=== PATIENT | male | born 1955 | race Caucasian/White ===

== ENCOUNTER 2025-07-08 10:56 | Outpatient (REF) | payer MEDICARE, SELFPAY ==
[2025-07-08 14:47] LABS: Hematocrit 45.4 % (42.0-52.0); Hemoglobin 15.1 g/dl (14.0-18.0); Mean Corpuscular HGB Conc 33.3 g/dl (31.0-36.0); Mean Corpuscular Hemoglobin 30.6 pg (27.0-33.0); Mean Corpuscular Volume 92.1 fL (80.0-98.0); NRBC Abs Auto 0.000 X10*3/uL (0.0-0.012); NRBC Pct Auto 0.0 /100WBC (0.0-0.2); Platelet Count 209 X10*3/uL (160-400); Red Blood Count 4.93 X10*6/uL (4.60-5.80); White Blood Count 4.3 X10*3/uL (4.8-10.8)
[2025-07-08 14:59] LABS: Alanine Aminotransferase 23 U/L (0-40); Albumin Level 4.5 g/dL (3.5-5.0); Alkaline Phosphatase 51 U/L (39-117); Anion Gap 9 (12-20); Aspartate Amino Transferase 33 U/L (5-37); Blood Urea Nitrogen 17 mg/dL (9-16); Calcium 9.1 mg/dL (8.4-10.2); Carbon Dioxide 28 mmol/L (22-29); Chloride 106 mmol/L (96-108); Cholesterol 125 mg/dL (<200); Estimated Glomerular Filt Rate > 60; HDL Cholesterol 50 mg/dL (>40); Iron 100 mcg/dL (45-160); Percent Iron Saturation 28 % (15-50); Potassium 4.1 mmol/L (3.3-5.1); Sodium 139 mmol/L (135-145); Total Iron Binding Capacity 353 mcg/dL (228-428); Total Protein 7.4 g/dL (6.5-8.0); Triglycerides 58 mg/dL (<150); Unsaturated Iron Binding 253 ug/dL
[2025-07-08 15:20] LABS: Ferritin 41 ng/mL (20-250)
[2025-07-08 15:21] LABS: Folate 12.6 ng/mL (> or = 4.0); Vitamin B12 458 pg/mL (200-900)
[2025-07-09 05:49] LABS: Lyme Abs Screen <0.90 index
[2025-07-15 14:43] LABS: Anti Nuclear Antibody Screen NEGATIVE (NEGATIVE)
== END 2025-07-08 10:57 | disposition home or self-care (01) ==
LOC: HO.WFDLDS 10:56
PROVIDERS: PCP Nurse Practitioner Family; Visit Provider Nurse Practitioner Family
DX: I10 Essential (primary) hypertension (principal); N40.1 Benign prostatic hyperplasia with lower urinary tract symptoms; N13.8 Other obstructive and reflux uropathy; F41.9 Anxiety disorder, unspecified; F95.9 Tic disorder, unspecified; R63.5 Abnormal weight gain; I25.10 Atherosclerotic heart disease of native coronary artery without angina pectoris; B35.1 Tinea unguium; F33.0 Major depressive disorder, recurrent, mild; F41.1 Generalized anxiety disorder; R73.03 Prediabetes; E03.8 Other specified hypothyroidism; I95.1 Orthostatic hypotension; B36.9 Superficial mycosis, unspecified; Z12.5 Encounter for screening for malignant neoplasm of prostate; Z76.89 Persons encountering health services in other specified circumstances
CPT/HCPCS: 36415; 80053; 80061; 82306; 82570; 82607; 82728; 82746; 83036; 83540; 84153; 84443; 85027; 86038; 86376; 86431; 86617; 86618; 96127; 99202

== ENCOUNTER 2025-07-08 10:56 | Outpatient (AMB) | payer MEDICARE, SELFPAY ==
--- NOTE | 2025-07-08 10:58 | MHC.PC.OV ---
Vital Signs 07/08/25 11:14 Height 5 ft 8 in Weight 190 lb 4 oz BMI 28.9 BP 115/71 Blood Pressure Location Rt brachial Position Sitting Respiration 16 Pulse 61 Pulse Source Pulse Oximeter Temp 97.9 F Temp Source Oral Pulse Oximetry (%) 98 Oxygen Delivery Method Room Air Intake Visit Reasons: est care Intake Note: patient here for new patient visit Non Destructive Evaluation Manager Required: No Allergies beta faheem Adverse Reaction (Intermediate, Uncoded 07/08/25 11:29) Fatigued Medication List - Last Reviewed 07/08/25 by TYRON Alcaraz aspirin (Adult Low Dose Aspirin) 81 mg PO DAILY escitalopram oxalate (Lexapro) 50 mg PO DAILY ezetimibe (Zetia) 10 mg PO DAILY losartan 12.5 mg PO DAILY nitroglycerin mg sublingual rosuvastatin 5 mg PO Q OTHER DAY Tobacco use date assessed: 07/08/25 Fall risk assessment: No Falls in past year Last assessed Fall Risk: 07/08/25 Dental Screening Dental Screen Date: 07/08/25 Did you have a dental visit in the last 12 months?: Yes Did you have a dental problem in the last 6 months where you did not have access to dental care?: No Was dental information given to patient?: Patient has dentist HPI HPI Comments History of Present Illness Details Yaw 70 y/o M with HSV, MDD, HLD, HTN, GERD, prediabetes, CAD s/p PA, BPH with LUTS, CAROLANN, Peripheral nueropathy, subclinical hypothyroid, thyroid nodule, neoplasm of urinary, tinnitus, Hx of L nereida tendon rupture. SurgHx: lap toupet fundoplication 2018, cardiac stents 2013 FHx: Mom ovarian ca; Dad CAD; PGM stroke SocHx: , Dtr; Retired Health Maintenance: See scanned preventative medicine assessment with personalized health plan and screening schedule. Colon: due 2024 Vaccines: tdap 2021, otherwise UTD FLu 06/2025 @ [facility] screen EKG: [place] of Care: Card Dr Joe Martin [facility] E[facility] Derm Here today as new patient Old records reviewed, Dr Annette SANTANA fatigue and wt gain Today BMI 28.9. This is my first visit seeing him; subjectively he says he has gained about 20-30lbs Had chronic GERD in the past, underwent surgery in 2019; meds for anxiety have helped his GERD. Now resolved. ADOLFO/MDD: since taking lexpro has gained wt. exercises. eats well. HX of PA s/p stenting 2013. worries about wt gain in the setting of heart dz PreDM - also worries about the weight affecting this. Rash under R axilla started a few months ago. Itchy. Used some RX cream and thsi helped but it has come back; had similar area on forehead. Has tic like behaviors, twitching neck. This has been on going for years. Wonders about side effect of lexapro.Advised no as this was there before starting. Has toe fungus L foot. This has been chronic. Hx of L nereida tendon rupture. Reports joints feel stiff in the AM upon waking; works self out after about 1 hour. Endorses episodes of orthostasis w/o syncope during position change Review of Systems - General: Reports fatigue, weight gain. - Dermatologic: Reports rash on arms reappearing intermittently. - Musculoskeletal: Reports morning joint stiffness in fingers. - Cardiovascular: Denies symptoms directly but reports ongoing management for coronary artery disease and hypertension. - Neurological: Reports neck twitching, denies fainting, but notes dizziness and balance issues. - Gastrointestinal: Denies current symptoms, reports resolution of GERD after starting Lexapro. - Psychiatric: Reports past anxiety and depression, currently managed with Lexapro. Physical Exam General: Well developed, well nourished, in no acute distress. Appears stated age. Head: Normocephalic, atraumatic. Eyes: Pupils are equal, round and reactive to light and accommodation. Conjunctivae are clear. Vision grossly normal. Lungs: Clear to auscultation bilaterally. No rales, rhonchi or wheeze noted. Good air flow in all hernández. Heart: Regular rate and rhythm. No murmurs, click, rubs or gallops are noted. Musculoskeletal: Joints are nontender, without swelling, redness, or effusions Pulses: Peripheral pulses are equal and palpable bilaterally. Extremities: No clubbing, cyanosis nor edema is noted. Onychomycosis affecting the Great and 2nd toe L foot; Skin: Under right axilla is a well demarcated erythematous macular rash with patches. Psych: Mood and affect appropriate. Results Pending Discussion Notes I discussed the patient's complex medical history and the primary concerns of fatigue and weight gain associated with Lexapro. We reviewed his successful management of GERD with the current medication, despite the undesired weight gain. I addressed the likely fungal rash under the arm, planning to initiate an antifungal treatment. I also considered his cardiac history, emphasizing the importance of consistent follow-up with his grain shipper, Dr. Sweeney, especially regarding his dizziness and balance concerns, potentially linked to low blood pressure or medication side effects. I advised on upcoming lab tests to rule out anemia, hypothyroidism, and autoimmune disease as contributors to his fatigue and weight gain. Recommended podiatry referral for toenail fungus evaluation, and affirmed the follow-up lab review in two weeks. Encouraged continuation of his physical activities and discussed options for managing anxiety-related twitching without medication changes. Emphasized the benefits of chiropractic adjustments. All prescriptions were transferred to ensure streamlined refills from this office. Reminded the patient about his portal activation and methods for non-urgent communication. Patient was given time to ask questions. All questions were answered to their satisfaction. Assessment and Plan 1. Chronic Fatigue - Test for anemia, thyroid. 2. Unintended Weight Gain - Monitor Lexapro effects. 3. Coronary Artery Disease - Maintain meds, consult grain shipper. 4. Hypertension - Maintain Losartan, consult cardiology. Reports episode of orthostatis i will have my nurses call Dr Kaur to inform and seek feedback 5. Chronic Recurrent Rash - Antifungal cream, if no improvement, fu with Derm 6. Habitual Neck Twitching - Anxiety related, maintain chiropractor sessions. 7. Toenail Mycosis - Podiatry referral. 8. Morning Joint Stiffness - Check inflammatory labs. Patient Instructions - Continue walking as exercise. - Use antifungal cream daily. - Follow up with low pressure boiler operator for toenail fungus. - Activate and use the patient portal for messages. - Return for lab review in two weeks. - Monitor blood pressure symptoms; consult cardiology as planned. - Use the topical cream as instructed. - Keep chiropractic appointments. - RTO 2 weeks to review labs and tx plan sooner PRN Consent Patient was informed and verbally consented to the use of an ambient scribe for clinic note documentation during this visit. Total time spent caring for the patient today was 45 minutes. This includes time spent before the visit reviewing the chart, time spent during the visit, and time spent after the visit on documentation, reviewing laboratory results, diagnostic imaging, medications, performing a medically necessary evaluation, counseling on diagnoses, care coordination, ordering appropriate tests, ordering appropriate medications, review of tests performed by other providers, reporting test results with the patient, communication with other healthcare providers. [facility] Medical History (Updated 07/08/25 @ 11:58 by Izabela Aggarwal, [facility]) Anxiety Eczema Heart disease High blood pressure History of gastroesophageal reflux (GERD) Surgical History (Updated 07/08/25 @ 11:20 by TYRON Alcaraz) History of angioplasty Family History (Updated 07/08/25 @ 11:23 by TYRON Alcaraz) Mother Ovarian cancer Father Asthma High blood pressure Cardiovascular disease Brother Cancer Social History (Updated 07/08/25 @ 11:05 by TYRON Alcaraz) Housing: House Alcohol intake: current Alcohol intake frequency: a few times a month Patient Tobacco Use Status: Never used Tobacco e-Cigarette/Vaping Use: Never Used Second Hand Smoke Exposure: No service: No Current occupational status: retired Current occupational exposures/hazards: No Cognitive needs: No Hearing needs: No Vision needs: Yes Questionnaire PHQ-9 Over the last 2 weeks, how often have you been bothered by any of the following problems? 1. Little interest or pleasure in doing things: not at all 2. Feeling down, depressed, or hopeless: not at all 3. Trouble falling or staying asleep, or sleeping too much: nearly every day (he gets up at 3am and reads himself back to sleep) 4. Feeling tired or having little energy: nearly every day 5. Poor appetite or overeating: more than half the days 6. Feeling bad about yourself - or that you are a failure or have let yourself or your family down: not at all 7. Trouble concentrating on things, such as reading the newspaper or watching television: not at all 8. Moving or speaking so slowly that other people could have noticed. Or the opposite - being so fidgety or restless that you have been moving around a lot more than usual: not at all 9. Thoughts that you would be better off or of hurting yourself in some way: not at all Total score: 8 Depression Screening Interpretation: Positive Depression Screening Follow-up: Existing condition and In treatment Depression Screening Done: Yes 22790 - PHQ-9 Billing: Yes Source: Developed by Drs. Jacobo Coronado, Sravani Wheeler, Black Motta and colleagues, with an educational lauryn from [employer]. Thrive Questionnaire Date Thrive assessed: 07/08/25 I am a: Patient What is your living situation today?: I have a steady place to live Within the past 12 months, did the food you bought not last and you didn't have the money to get more?: Never true Within the past 12 months, did you worry whether your food would run out before you got money to buy more?: Never true Do you have trouble paying for medicines?: No Do you have trouble getting transportation to medical appointments?: No Do you have trouble paying your heating and electricity bill?: No Do you have trouble taking care of your child, family member or friend?: No Do you have trouble with day-to-day activities such as bathing, preparing meals, shopping, managing finances, etc.?: No Are you currently unemployed and looking for a job?: No Are you interested in more education?: I choose not to answer this question Please select the resources that you would like help with: None Currently or been in a relationship where the following occur: I choose not to answer THRIVE Score: 0 AUDIT C Alcohol Use Questionnaire (AUDIT-C) 1. How often do you have a drink containing alcohol?: 2-4 times a month 2. How many drinks containing alcohol do you have on a typical day when you are drinking?: 3 or 4 3. How often do you have six or more drinks on one occasion?: Never Total Score: 3 Score Reviewed/Action Taken: Yes ADOLFO-7 AMB Questionnaire ADOLFO-7 Date ADOLFO - 7 assessed: 07/08/25 Feeling nervous, anxious, or on edge: 1 = Several days Not being able to stop or control worryin = Several days Worrying too much about different things: 1 = Several days Trouble relaxin = Not at all Being so restless that it is hard to sit still: 0 = Not at all Becoming easily annoyed or irritable: 0 = Not at all Feeling afraid as if something awful might happen: 0 = Not at all Total ADOLFO-7 score (0-4 normal; 5-9 mild; 10-14 moderate; 15-21 severe): 3 Source: Developed by Drs. Jacobo Coronado, Sravani Wheeler, Black Motta and colleagues, with an educational lauryn from [employer]. ADOLFO-7 Assessment Billing ADOLFO-7 Assessment Tool: ADOLFO-7 Assessment 48489 Physical exam (Primary Care) Vital Signs: Last Vital Signs Temp 97.9 F 07/08/25 11:14 Pulse 61 07/08/25 11:14 Resp 16 07/08/25 11:14 BP 115/71 07/08/25 11:14 Pulse Ox 98 07/08/25 11:14 Oxygen Delivery Method Room Air 07/08/25 11:14 BMI result Body Mass Index 28.9 Tobacco/Smoking Status: Tobacco use Status Patient Tobacco Use Status Never used Tobacco 07/08/25 11:05 Tobacco use type 07/07/25 12:21 Depression Screening Interpretation: Positive Depression Screening Follow-up: Existing condition and In treatment Thrive Assessment: Date of Thrive Assessment Date Thrive assessed 06/28/25 07/07/25 12:21 Currently or been in a relationship where the following occur: I choose not to answer Coding Level of Care Code New Pt Level 4 (62070) Complex EM visit Add On G2211 Diagnoses Encounter to establish care Z76.89 Mild episode of recurrent major depressive disorder F33.0 Major depression episode severity: mild ADOLFO (generalized anxiety disorder) F41.1 Prediabetes R73.03 Coronary artery disease involving [place] coronary artery of [place] heart without angina pectoris I25.10 Coronary Disease-Associated Artery/Lesion type: [place] artery [place] vs. transplanted heart: [place] heart Associated angina: without angina Primary hypertension I10 Hypertension type: primary hypertension Subclinical hypothyroidism E03.8 Onychomycosis B35.1 Orthostatic hypotension I95.1 Weight gain R63.5 Tic disorder F95.9 Fungal rash of torso B36.9 Fatigue R53.83 Additional Codes ADOLFO-7 Assessment Billing - ADOLFO-7 Assessment Tool: ADOLFO-7 Assessment 54478 ([id number]) PHQ-9 - 40347 - PHQ-9 Billing: Yes ([id number]) Assessment & Plan Assessment & Plan (1) Encounter to establish care: Code(s): Z76.89 - Persons encountering health services in other specified circumstances (2) MDD (major depressive disorder), recurrent episode: Code(s): F33.9 - Major depressive disorder, recurrent, unspecified Category: Medical Qualifiers: Major depression episode severity: mild Qualified Code(s): F33.0 - Major depressive disorder, recurrent, mild (3) ADOLFO (generalized anxiety disorder): Code(s): F41.1 - Generalized anxiety disorder Category: Medical (4) Prediabetes: Code(s): R73.03 - Prediabetes Category: Medical (5) CAD (coronary artery disease): Code(s): I25.10 - Atherosclerotic heart disease of [place] coronary artery without angina pectoris Category: Medical Qualifiers: Coronary Disease-Associated Artery/Lesion type: [place] artery [place] vs. transplanted heart: [place] heart Associated angina: without angina Qualified Code(s): I25.10 - Atherosclerotic heart disease of [place] coronary artery without angina pectoris (6) High blood pressure: Code(s): I10 - Essential (primary) hypertension Category: Medical Qualifiers: Hypertension type: primary hypertension Qualified Code(s): I10 - Essential (primary) hypertension (7) Subclinical hypothyroidism: Code(s): E03.8 - Other specified hypothyroidism Category: Medical (8) Onychomycosis: Code(s): B35.1 - Tinea unguium Category: Medical (9) Orthostatic hypotension: Code(s): I95.1 - Orthostatic hypotension Category: Medical (10) Weight gain: Code(s): R63.5 - Abnormal weight gain Category: Medical (11) Tic disorder: Code(s): F95.9 - Tic disorder, unspecified Category: Medical (12) Fungal rash of torso: Code(s): B36.9 - Superficial mycosis, unspecified (13) Fatigue: Code(s): R53.83 - Other fatigue Plan . Orders: Orders Comprehensive Met. Panel Today E03.8 - Other specified hypothyroidism, I10 - Essential (primary) hypertension, I25.10 - Atherosclerotic heart disease of [place] coronary artery without angina pectoris, I95.1 - Orthostatic hypotension, N13.8 - Other obstructive and reflux uropathy, N40.1 - Benign prostatic hyperplasia with lower urinary tract symptoms, R73.03 - Prediabetes Microalbumin, Random (w Creat) Today E03.8 - Other specified hypothyroidism, I10 - Essential (primary) hypertension, I25.10 - Atherosclerotic heart disease of [place] coronary artery without angina pectoris, I95.1 - Orthostatic hypotension, N13.8 - Other obstructive and reflux uropathy, N40.1 - Benign prostatic hyperplasia with lower urinary tract symptoms, R73.03 - Prediabetes Vitamin B12 and Folate Today E03.8 - Other specified hypothyroidism, I10 - Essential (primary) hypertension, I25.10 - Atherosclerotic heart disease of [place] coronary artery without angina pectoris, I95.1 - Orthostatic hypotension, N13.8 - Other obstructive and reflux uropathy, N40.1 - Benign prostatic hyperplasia with lower urinary tract symptoms, R73.03 - Prediabetes GERI Reflex Titer and Pattern Today E03.8 - Other specified hypothyroidism, I10 - Essential (primary) hypertension, I25.10 - Atherosclerotic heart disease of [place] coronary artery without angina pectoris, I95.1 - Orthostatic hypotension, N13.8 - Other obstructive and reflux uropathy, N40.1 - Benign prostatic hyperplasia with lower urinary tract symptoms, R73.03 - Prediabetes Lyme IgG/IgM w/reflex to WB Today E03.8 - Other specified hypothyroidism, I10 - Essential (primary) hypertension, I25.10 - Atherosclerotic heart disease of [place] coronary artery without angina pectoris, I95.1 - Orthostatic hypotension, N13.8 - Other obstructive and reflux uropathy, N40.1 - Benign prostatic hyperplasia with lower urinary tract symptoms, R73.03 - Prediabetes Complete Blood Count no Diff Today E03.8 - Other specified hypothyroidism, I10 - Essential (primary) hypertension, I25.10 - Atherosclerotic heart disease of [place] coronary artery without angina pectoris, I95.1 - Orthostatic hypotension, N13.8 - Other obstructive and reflux uropathy, N40.1 - Benign prostatic hyperplasia with lower urinary tract symptoms, R73.03 - Prediabetes Hemoglobin A1c Today E03.8 - Other specified hypothyroidism, I10 - Essential (primary) hypertension, I25.10 - Atherosclerotic heart disease of [place] coronary artery without angina pectoris, I95.1 - Orthostatic hypotension, N13.8 - Other obstructive and reflux uropathy, N40.1 - Benign prostatic hyperplasia with lower urinary tract symptoms, R73.03 - Prediabetes IRON PROFILE Today E03.8 - Other specified hypothyroidism, I10 - Essential (primary) hypertension, I25.10 - Atherosclerotic heart disease of [place] coronary artery without angina pectoris, I95.1 - Orthostatic hypotension, N13.8 - Other obstructive and reflux uropathy, N40.1 - Benign prostatic hyperplasia with lower urinary tract symptoms, R73.03 - Prediabetes Ferritin Today E03.8 - Other specified hypothyroidism, I10 - Essential (primary) hypertension, I25.10 - Atherosclerotic heart disease of [place] coronary artery without angina pectoris, I95.1 - Orthostatic hypotension, N13.8 - Other obstructive and reflux uropathy, N40.1 - Benign prostatic hyperplasia with lower urinary tract symptoms, R73.03 - Prediabetes Lipid Panel Today E03.8 - Other specified hypothyroidism, I10 - Essential (primary) hypertension, I25.10 - Atherosclerotic heart disease of [place] coronary artery without angina pectoris, I95.1 - Orthostatic hypotension, N13.8 - Other obstructive and reflux uropathy, N40.1 - Benign prostatic hyperplasia with lower urinary tract symptoms, R73.03 - Prediabetes Prostate Specific Antigen Scr Today E03.8 - Other specified hypothyroidism, I10 - Essential (primary) hypertension, I25.10 - Atherosclerotic heart disease of [place] coronary artery without angina pectoris, I95.1 - Orthostatic hypotension, N13.8 - Other obstructive and reflux uropathy, N40.1 - Benign prostatic hyperplasia with lower urinary tract symptoms, R73.03 - Prediabetes TSH reflex Free T4 Today E03.8 - Other specified hypothyroidism, I10 - Essential (primary) hypertension, I25.10 - Atherosclerotic heart disease of [place] coronary artery without angina pectoris, I95.1 - Orthostatic hypotension, N13.8 - Other obstructive and reflux uropathy, N40.1 - Benign prostatic hyperplasia with lower urinary tract symptoms, R73.03 - Prediabetes Vitamin D 25-OH Total Today E03.8 - Other specified hypothyroidism, I10 - Essential (primary) hypertension, I25.10 - Atherosclerotic heart disease of [place] coronary artery without angina pectoris, I95.1 - Orthostatic hypotension, N13.8 - Other obstructive and reflux uropathy, N40.1 - Benign prostatic hyperplasia with lower urinary tract symptoms, R73.03 - Prediabetes Rheumatoid Factor Today E03.8 - Other specified hypothyroidism, I10 - Essential (primary) hypertension, I25.10 - Atherosclerotic heart disease of [place] coronary artery without angina pectoris, I95.1 - Orthostatic hypotension, N13.8 - Other obstructive and reflux uropathy, N40.1 - Benign prostatic hyperplasia with lower urinary tract symptoms, R73.03 - Prediabetes Thyroid Peroxidase Antibodies Today E03.8 - Other specified hypothyroidism, I10 - Essential (primary) hypertension, I25.10 - Atherosclerotic heart disease of [place] coronary artery without angina pectoris, I95.1 - Orthostatic hypotension, N13.8 - Other obstructive and reflux uropathy, N40.1 - Benign prostatic hyperplasia with lower urinary tract symptoms, R73.03 - Prediabetes Referrals Podiatry Referral B35.1 - Tinea unguium Medications: New rosuvastatin 5 mg PO Q OTHER DAY 45 tabs 2RF nystatin 1 appl topical DAILY 30 grams 4RF ezetimibe (Zetia) 10 mg PO DAILY 90 tabs 2RF losartan 50 mg PO DAILY 90 tabs 2RF escitalopram oxalate (Lexapro) 10 mg PO DAILY 90 tabs 2RF Patient Instructions: Walk-In Care (Urgent Care): We Make it Easy Walk-in for urgent medical issues such as: ? Seasonal Allergies ? Insect Bites ? Cough ? Diarrhea ? Acute Asthma Attacks ? Back, Knee or Joint Pain ? Ear Infection ? Fever without a Rash ? Headaches ? Nausea ? [place] Eye, Rash or Skin Irritation ? Sore Throat ? Sports Physicals ? Vomiting Most insurances are accepted. Patients do not need to be part of the [facility] to seek care at the walk-in clinic. Locations [address] [place], [place] Open Saturday through Saturday 8am-5pm *Hours may vary due to staffing availability. To confirm Walk-In Care hours please call. [facility] [address], [place] [address] ? [phone] [facility] Walk-In Care in [place] provides services to ages 18 and over. Open Saturday-Saturday: 7 a.m. to 5 p.m. and Saturday: 9 a.m. to 3 p.m.* *Hours may vary due to staffing availability. To confirm Walk-In Care hours in [place], please call [phone]. [address] [place] [address] ? [phone] [facility] Walk-In Care in [place] provides services to ages 12 and over. Open Saturday-Saturday: 8 a.m. to 5 p.m. Hours may vary due to staffing availability. To confirm Walk-In Care hours in [place], please call [phone]. LABORATORY SERVICES: [facility] Lab ? Primary Location [address] [place] [address] Saturday through Saturday 6:00 AM ? 5:00 PM Saturday 7:00 AM ? 11:00 AM* [phone] The [facility] Lab is centrally located near the front entrance of the [facility] for easy outpatient access. Convenient parking is provided for outpatients. *Hours may vary due to staffing availability. To confirm Laboratory hours for any location, please call [phone]. Offsite Location For your convenience, we offer offsite laboratory draw stations at the following locations: [address] [place] [address] ? [address], [address] [place] [address] Saturday through Saturday 7:30 AM ? 1:00 PM* [phone] *Hours may vary due to staffing availability. To confirm Laboratory hours for any location, please call [phone]. [place] ? [address] Saturday through Saturday 6:00 AM ? 3:30 PM* Saturday 6:30 AM ? 3 PM* [phone] *Hours may vary due to staffing availability. To confirm Laboratory hours for any location, please call [phone] [place] [address] Saturday through Saturday 7:30 AM ? 4:00 PM* [phone] *Hours may vary due to staffing availability. To confirm Laboratory hours for any location, please call [phone] [place] [address] Saturday through 9:00 AM ? 4:00 PM* *Hours may vary due to staffing availability. To confirm Laboratory hours for any location, please call [phone]. Appointments are not necessary. Walk-ins are welcome. Like all the departments throughout the [facility], our Lab undergoes frequent reviews to ensure the quality and accuracy of test results, and our staff takes special pride in its status as a nationally accredited facility. Patient Portal: [facility] ONE PATIENT. ONE RECORD. BETTER CARE. [facility] has a fully integrated, cutting-edge mobile electronic health information system that has revolutionized the way we care for our patients and manage our organization. This system improves communication and coordination enabling us to provide safe, higher-quality care, and an overall positive experience for staff and patients. Our first priority, as always, is to deliver the highest quality care possible. The system is running in the background supporting that priority. This portal is for all [facility] services and practices. If you are experiencing any technical difficulties with enrolling or logging into the Patient Portal please complete the [facility] Patient Portal Technical Support Form. [facility] now offers a new secure on-line interactive tool for patients to review their health information ? ?Patient Portal. This interactive web portal will enable patients and their families to take an active role in their care by providing easy, secure access to their health information via the internet. The Patient Portal provides patients with instant access to their health information, including laboratory results, medications, allergies, demographic information, visit history, and more. In addition to managing their own care, parents and health care proxies with authorized consent will appreciate the ability to access the records of those individuals for whom they provide care. Please note: if you wish to gain access (Proxy) to another patient?s portal, you will be required to come to the Medical Records Department in person at [facility]. Both the patient giving proxy access and the proxy will need to provide photo identification and complete the appropriate authorization. The Patient Portal also allows track their appointments online. The [facility] Patient Portal also saves patients time by allowing them to submit updates to their demographic and contact information prior to their visits. Portal email notifications will also alert patients to any new activity on their portal, such as test results and new appointments. In order to initially enroll in the [facility] Patient Portal, you will need to enter some required information including the following: your [facility] Medical Record number your personal home email address name date of Please note: In order to enroll in the [facility] Patient Portal, we need to have your email address on file in your electronic medical record. ?The email address needs to be specific for one person (yourself) in order for your Portal enrollment to be successful. ?You can update your email address in person with our Registration staff when you are registering for a hospital visit. ?Otherwise, you will need to come to the Health Information Management (Medical Records) Department at [facility]. ?We are open from Saturday ? Saturday from 7:30 a.m. ? 4:30 p.m. ?You will be required to present a photo id. Once you have successfully enrolled in the Patient Portal, you will receive a one-time user id and password for the Portal, sent to your email address. ?This will allow you to log into the Patient Portal within 99 hrs and reset your own logon id and password, and define personal security questions. ?Once your permanent login and password have been set, you can log into the [facility] Patient Portal at any time via the blue button above or from the Portal Logon button on any page of the [facility] website. [facility] and [facility] encourage all of our patients to enroll in Patient Portal as it presents a valuable opportunity for patients and their families to actively participate in their care and stay healthy Welcome to [facility]. ?We look forward to working with you.
[2025-07-08 11:14] VITALS: BP 115/71; PULSE 61; RESP 16; TEMP 36.6; O2SAT 98; BMI 28.9
== END 2025-07-08 11:53 | disposition home or self-care (01) ==
LOC: HO.HMCFM 10:56
PROVIDERS: PCP Nurse Practitioner Family; Visit Provider Nurse Practitioner Family
DX: Z76.89 Persons encountering health services in other specified circumstances (principal); F33.0 Major depressive disorder, recurrent, mild; F41.1 Generalized anxiety disorder; R73.03 Prediabetes; I25.10 Atherosclerotic heart disease of native coronary artery without angina pectoris; I10 Essential (primary) hypertension; E03.8 Other specified hypothyroidism; B35.1 Tinea unguium; I95.1 Orthostatic hypotension; R63.5 Abnormal weight gain; F95.9 Tic disorder, unspecified; B36.9 Superficial mycosis, unspecified; R53.83 Other fatigue

== ENCOUNTER 2025-07-23 10:59 | Outpatient (AMB) | payer MEDICARE, OTHER, SELFPAY ==
--- NOTE | 2025-07-23 11:05 | A.OFFPC_ITS ---
Vital Signs 07/23/25 11:08 Height 5 ft 8 in Weight 187 lb 4 oz BMI 28.5 BP 122/72 Blood Pressure Location Lt brachial Position Sitting Respiration 12 Pulse 65 Pulse Source Pulse Oximeter Temp 97.3 F Temp Source Oral Pulse Oximetry (%) 99 Oxygen Delivery Method Room Air Intake Visit Reasons: 2 weeks fu labs/treatment plan 30 min Intake Note: 2 Weeks follow up to review labs and treatment plan. 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- aspirin (Adult Low Dose Aspirin) 81 mg PO DAILY escitalopram oxalate (Lexapro) 10 mg PO DAILY ezetimibe (Zetia) 10 mg PO DAILY losartan 50 mg PO DAILY nitroglycerin mg sublingual nystatin 1 appl topical DAILY rosuvastatin 5 mg PO Q OTHER DAY Tobacco use date assessed: 07/23/25 Fall risk assessment: No Falls in past year Last assessed Fall Risk: 07/23/25 Dental Screening Dental Screen Date: 07/23/25 Did you have a dental visit in the last 12 months?: Yes Did you have a dental problem in the last 6 months where you did not have access to dental care?: No Was dental information given to patient?: Patient has dentist HPI HPI Comments History of Present Illness Details Yaw 70 y/o M with HSV, MDD, HLD, HTN, GERD, prediabetes, CAD s/p NM, BPH with LUTS, CAROLANN, Peripheral nueropathy, subclinical hypothyroid, thyroid nodule, neoplasm of urinary, tinnitus, Hx of L nereida tendon rupture. SurgHx: lap toupet fundoplication 2018, cardiac stents 2013 FHx: Mom ovarian ca; Dad CAD; PGM stroke SocHx: , Dtr; Retired Health Maintenance: See scanned preventative medicine assessment with personalized health plan and screening schedule. Colon: due 2024 Vaccines: tdap 2021, otherwise UTD FLu 06/2025 @ [facility] screen EKG: [place] of Care: Card Dr Joe Millard [facility] E[facility] Derm History of Present Illness The patient is a 70-year-old male presenting for an interim follow-up to discuss ongoing symptoms of fatigue, weight gain, joint stiffness, and a rash, and to review recent laboratory results. Fatigue and Dizziness: - The patient reports persistent fatigue . - He notes occasional balance issues, de scribed as a swaying sensation, but denies dizziness. - The patient declined a sleep study, ci ting a negative experience with a previous in-lab study years ago, and is not interested in a home sleep study at this time. - He did go into Dr Adair office for orth o VS which was normal. - Home BP/P reviewed P 50-64, SBP 120-1 30 Weight Gain: - The patient had concerns about weight gain since starting Lexapro for anxiety. - His weight at this visit was 187.4 lbs , down from 190.4 lbs at the last visit. - He reports nocturia but denies any per ipheral edema. Arthralgia: - The patient complains of joint stiffne ss upon waking in the morning, which he describes as not debilitating. - He is on rosuvastatin, which can cause myalgias, but notes these symptoms are much milder compared to when he took atorvastatin after a cardiac event. - A recent workup including rheumatoid f actor, GERI, and Lyme disease testing was negative. Rash, right axilla: - The patient has a rash under his right arm that has not improved with ointment application. Anxiety: - The patient is taking Lexapro for anxi ety. Review of Systems - Constitutional: Reports fatigue and wa s concerned about weight gain, though his weight is down. - Dermatologic: Reports a persistent khai h under the right axilla despite using ointment. - Musculoskeletal: Reports joint stiffne ss in the morning, which is not debilitating. - Neurologic: Reports occasional balance issues described as a swaying se nsation. - Cardiovascular: Denies dizziness. - Genitourinary: Reports nocturia. - General: Denies swelling. Physical Exam General: Well developed, well nourished, in no acute distress. Appears stated age. Head: Normocephalic, atraumatic. Eyes: Pupils are equal, round and reactive to light and accommodation. Conjunctivae are clear. Vision grossly normal. Lungs: Clear to auscultation bilaterally. No rales, rhonchi or wheeze noted. Good air flow in all hernández. Heart: Regular rate and rhythm. No murmurs, click, rubs or gallops are noted. Musculoskeletal: Joints are nontender, without swelling, redness, or effusions Pulses: Peripheral pulses are equal and palpable bilaterally. Extremities: No clubbing, cyanosis nor edema is noted. Onychomycosis affecting the Great and 2nd toe L foot; Skin: Under right axilla is a well demarcated erythematous macular rash with patches. Psych: Mood and affect appropriate. Results - Labs from 07/08/2025: - CBC: WBC low at 4.3, otherwise normal. - CMP: Electrolytes normal, renal functi on normal, liver functions normal. - A1c: 5.8%. - Iron stores: Normal. - Lipid panel: LDL 64, otherwise normal. - PSA: 0.64. - Vitamins: B12, vitamin D, and folate n ormal. - Thyroid function: Normal. - Urine microalbumin/creatinine ratio: N ormal. - Serologies: Rheumatoid factor negative , GERI negative, Lyme titer negative. - Home Blood Pressure Monitoring: Readin gs from Jul 17- ranged from 121/75 to 143/79 with heart rates from 54-65 bpm. Medical Decision Making The patient is a 70-year-old male who presents for an interim follow-up to re view labs and discuss ongoing complaints of fatigue, joint stiffness, and a rash. A comprehensive laboratory workup was recently performed to evaluate his symptoms, and the results were largely reassuring and unremarkable. The only abnormality noted was a mild leukopenia (WBC 4.3), which is considered clinically insignificant at this time and can be monitored with a repeat CBC in six months. His joint stiffness, while persistent, is non-debilitating and well-tolerated, especially in comparison to a previous trial of atorvastatin; this is likely related to his current rosuvastatin or age-related changes, as inflammatory and autoimmune causes have been ruled out. The rash in the right axilla has not responded to initial ointment therapy, he is active w/ dermatology & will schedule a fu. The patient's concern about weight gain has been addressed, as his weight has actually decreased by three pounds since his last visit. Regarding his fatigue, a sleep study was offered, but the patient declined to pursue this at this time. His home blood pressure logs are reassuring and his heart is hemodynamically stable during physical exam maneuvers. The plan is to follow up in six months with repeat labs and a wellness exam, with the patient instructed to follow up sooner if any new concerns arise. Plan 1. Fatigue - A sleep study was discussed as a poten tial diagnostic step to evaluate for underlying sleep disorders, but the patient declined to proceed at this time. - Will continue to monitor symptoms. 2. Mild Leukopenia - The recent finding of a low white bloo d cell count (4.3) is considered non- alarming and likely represents a benign fluctuation. - A repeat complete blood count (CBC) is planned in six months to monitor the trend. 3. Rash, Right Axilla - The patient's rash has not improved wi th the current ointment. - He will schedule appt w Dr Gates at [facility] 4. Arthralgia - The extensive workup for inflammatory and autoimmune causes was negative. - No change in management is planned at this time. - The symptoms are considered likely rel ated to his rosuvastatin therapy, which he tolerates well, or degenerative changes. 5. Health Maintenance - The patient will have a follow-up visi t in six months, which will include a complete physical and wellness exam. - Labs, including a CBC, CMP (kidneys, l iver, electrolytes), and cholesterol panel, will be drawn one week prior to the visit. - The patient has been advised that fast ing is not necessary for these labs. Patient Instructions - I will make a referral for you to see a research specialist (kiln repairer) for the rash under your arm. - Continue taking all your medications a s prescribed. - Please schedule a follow-up appointmen t in six months for a full physical and wellness exam. - About one week before your next appoin tment, please go for blood tests. We will check your complete blood count, kidney and liver function, electrolytes, and cholesterol. - You do not need to fast (avoid eating or drinking) before these blood tests. - If you have any changes in your health or need to be seen sooner, please send me a message through the patient portal. Consent The patient declined to proceed with a sleep study at this time. Patient was informed and verbally consented to the use of an ambient scribe for clinic note documentation during this visit. Total time spent caring for the patient today was 30 minutes. This includes time spent before the visit reviewing the chart, time spent during the visit, and time spent after the visit on documentation, reviewing laboratory results, diagnostic imaging, medications, performing a medically necessary evaluation, counseling on diagnoses, care coordination, ordering appropriate tests, ordering appropriate medications, review of tests performed by other providers, reporting test results with the patient, communication with other healthcare providers. [facility] Medical History (Updated 07/23/25 @ 11:35 by Izabela Aggarwal, [facility]) Anxiety Eczema Heart disease High blood pressure History of gastroesophageal reflux (GERD) Surgical History (Updated 07/08/25 @ 11:20 by TYRON Alcaraz) History of angioplasty Family History (Updated 07/08/25 @ 11:23 by TYRON Alcaraz) Mother Ovarian cancer Father Asthma High blood pressure Cardiovascular disease Brother Cancer Social History (Updated 07/08/25 @ 11:05 by TYRON Alcaraz) Housing: House Alcohol intake: current Alcohol intake frequency: a few times a month Patient Tobacco Use Status: Never used Tobacco e-Cigarette/Vaping Use: Never Used Second Hand Smoke Exposure: No service: No Current occupational status: retired Current occupational exposures/hazards: No Cognitive needs: No Hearing needs: No Vision needs: Yes Questionnaire PHQ-9 Over the last 2 weeks, how often have you been bothered by any of the following problems? 1. Little interest or pleasure in doing things: not at all 2. Feeling down, depressed, or hopeless: not at all 3. Trouble falling or staying asleep, or sleeping too much: several days 4. Feeling tired or having little energy: several days 5. Poor appetite or overeating: several days 6. Feeling bad about yourself - or that you are a failure or have let yourself or your family down: several days 7. Trouble concentrating on things, such as reading the newspaper or watching television: several days 8. Moving or speaking so slowly that other people could have noticed. Or the opposite - being so fidgety or restless that you have been moving around a lot more than usual: not at all 9. Thoughts that you would be better off or of hurting yourself in some way: not at all Total score: 5 Depression Screening Interpretation: Positive Depression Screening Done: Yes 69918 - PHQ-9 Billing: Yes Source: Developed by Drs. Jacobo Coronado, Sravani Wheeler, Black Motta and colleagues, with an educational lauryn from [employer]. Thrive Questionnaire Date Thrive assessed: 07/23/25 I am a: Patient What is your living situation today?: I have a steady place to live Within the past 12 months, did the food you bought not last and you didn't have the money to get more?: Never true Within the past 12 months, did you worry whether your food would run out before you got money to buy more?: Never true Do you have trouble paying for medicines?: No Do you have trouble getting transportation to medical appointments?: No Do you have trouble paying your heating and electricity bill?: No Do you have trouble taking care of your child, family member or friend?: No Do you have trouble with day-to-day activities such as bathing, preparing meals, shopping, managing finances, etc.?: No Are you currently unemployed and looking for a job?: No Are you interested in more education?: I choose not to answer this question Please select the resources that you would like help with: None Currently or been in a relationship where the following occur: I choose not to answer THRIVE Score: 0 ADOLFO-7 AMB Questionnaire ADOLFO-7 Date ADOLFO - 7 assessed: 07/23/25 Feeling nervous, anxious, or on edge: 0 = Not at all Not being able to stop or control worryin = Not at all Worrying too much about different things: 0 = Not at all Trouble relaxin = Not at all Being so restless that it is hard to sit still: 0 = Not at all Becoming easily annoyed or irritable: 0 = Not at all Feeling afraid as if something awful might happen: 0 = Not at all Total ADOLFO-7 score (0-4 normal; 5-9 mild; 10-14 moderate; 15-21 severe): 0 Source: Developed by Drs. Jacobo Coronado, Sravani Wheeler, Black Motta and colleagues, with an educational lauryn from [employer]. ADOLFO-7 Assessment Billing ADOLFO-7 Assessment Tool: ADOLFO-7 Assessment 68858 Physical exam (Primary Care) Vital Signs: Last Vital Signs Temp 97.3 F 07/23/25 11:08 Pulse 65 07/23/25 11:08 Resp 12 07/23/25 11:08 BP 122/72 07/23/25 11:08 Pulse Ox 99 07/23/25 11:08 Oxygen Delivery Method Room Air 07/23/25 11:08 BMI result Body Mass Index 28.5 Tobacco/Smoking Status: Tobacco use Status Tobacco use date assessed 07/23/25 07/23/25 11:10 Patient Tobacco Use Status Never used Tobacco 07/23/25 11:10 Tobacco use type 07/07/25 12:21 e-Cigarette/Vaping Use Never Used 07/23/25 11:10 PHQ-9: PHQ-9 Score PHQ-9: Total score 5 07/23/25 11:10 Depression Screening Interpretation: Positive Thrive Assessment: Date of Thrive Assessment Date Thrive assessed 07/23/25 07/23/25 11:10 Currently or been in a relationship where the following occur: I choose not to answer Coding Level of Care Code Est Pt Level 4 (17658) Complex EM visit Add On G2211 Diagnoses Prediabetes R73.03 Leukopenia, unspecified type D72.819 Leukopenia type: unspecified Coronary artery disease involving [place] coronary artery of [place] heart without angina pectoris I25.10 Coronary Disease-Associated Artery/Lesion type: [place] artery [place] vs. transplanted heart: [place] heart Associated angina: without angina Orthostatic hypotension I95.1 Fungal rash of trunk B36.9 Additional Codes ADOLFO-7 Assessment Billing - ADOLFO-7 Assessment Tool: ADOLFO-7 Assessment [id number] ([id number]) PHQ-9 - 72364 - PHQ-9 Billing: Yes ([id number]) Assessment & Plan Assessment & Plan (1) Prediabetes: Code(s): R73.03 - Prediabetes Category: Medical (2) Leukopenia: Code(s): D72.819 - Decreased white blood cell count, unspecified Category: Medical Qualifiers: Leukopenia type: unspecified Qualified Code(s): D72.819 - Decreased white blood cell count, unspecified (3) CAD (coronary artery disease): Code(s): I25.10 - Atherosclerotic heart disease of [place] coronary artery without angina pectoris Category: Medical Qualifiers: Coronary Disease-Associated Artery/Lesion type: [place] artery [place] vs. transplanted heart: [place] heart Associated angina: without angina Qualified Code(s): I25.10 - Atherosclerotic heart disease of [place] coronary artery without angina pectoris (4) Orthostatic hypotension: Code(s): I95.1 - Orthostatic hypotension Category: Medical (5) Fungal rash of trunk: Code(s): B36.9 - Superficial mycosis, unspecified Plan . Orders: Orders Comprehensive Met. Panel 6 Months R73.03 - Prediabetes Lipid Panel 6 Months R73.03 - Prediabetes Complete Blood Count no Diff 6 Months R73.03 - Prediabetes
[2025-07-23 11:08] VITALS: BP 122/72; PULSE 65; RESP 12; TEMP 36.3; O2SAT 99; BMI 28.5
== END 2025-07-23 14:15 | disposition home or self-care (01) ==
LOC: HO.HMCFM 11:00
PROVIDERS: PCP Nurse Practitioner Family; Visit Provider Nurse Practitioner Family
DX: R73.03 Prediabetes (principal); D72.819 Decreased white blood cell count, unspecified; I25.10 Atherosclerotic heart disease of native coronary artery without angina pectoris; I95.1 Orthostatic hypotension; B36.9 Superficial mycosis, unspecified

== ENCOUNTER → 2025-07-23 10:59 | Outpatient (BNVA) | payer MEDICARE, OTHER, SELFPAY | PROVIDERS: PCP Nurse Practitioner Family; Visit Provider Nurse Practitioner Family | DX: R21 Rash and other nonspecific skin eruption (principal); R53.83 Other fatigue; R73.03 Prediabetes; D72.819 Decreased white blood cell count, unspecified; I25.10 Atherosclerotic heart disease of native coronary artery without angina pectoris; I95.1 Orthostatic hypotension; B36.9 Superficial mycosis, unspecified; Z13.31 Encounter for screening for depression; Z13.39 Encounter for screening examination for other mental health and behavioral disorders | CPT/HCPCS: 96127; 99212 ==